=== PATIENT | female | born 1985 | race Caucasian/White ===

== ENCOUNTER 2024-07-19 15:57 | Emergency (ER) | payer SELFPAY | END 2024-07-19 16:08 | disposition left against medical advice (07) | LOC: ER 15:58 | DX: J00 Acute nasopharyngitis [common cold] (principal); Z59.00 Homelessness unspecified | CPT/HCPCS: 99281; 99283 ==

== ENCOUNTER 2024-07-21 11:23 | Inpatient (IN) | payer MEDICAID ==
[~2024-07-21] VITALS: Ht 162.6 cm; Wt 76.6 kg
[2024-07-21 12:48] LABS: URINE AMPHETAMINE SCREEN NEGATIVE (Neg); URINE BARBITUATE SCREEN NEGATIVE (Neg); URINE BENZODIAZEPINES SCREEN NEGATIVE (Neg); URINE CANNABINOID SCREEN NEGATIVE (Neg); URINE COCAINE SCREEN NEGATIVE (Neg); URINE METHADONE SCREEN NEGATIVE (Neg); URINE OPIATE SCREEN NEGATIVE (Neg); URINE PHENCYCLIDINE SCREEN NEGATIVE (Neg)
[2024-07-21 13:25] LABS: BILIRUBIN,URINE SMALL (Neg); CLARITY,URINE SLIGHTLY CLOUDY (Clear); COLOR,URINE YELLOW (Yellow); GLUCOSE, URINE NEGATIVE (Neg); KETONES,URINE 40 mg/dl (Neg); LEUKOCYTE ESTERASE ,URINE NEGATIVE (Neg); NITRITES, URINE NEGATIVE (Neg); OCCULT BLOOD,URINE NEGATIVE (Neg); PROTEIN,URINE TRACE mg/dl (Neg); UROBILINOGEN,URINE 0.2 E.U/dL (0.2-1.0)
[2024-07-21 13:27] LABS: UA COLLECTION TYPE NON-SPECIFIED
[2024-07-21 13:31] LABS: BACTERIA,URINE FEW /HPF (Neg); RBC,URINE 0-2 /HPF (0-2); SQUAMOUS EPITHELIAL CELL,UR FEW /LPF (FEW); WBC,URINE 0-4 /HPF (0-4)
[2024-07-21 13:32] LABS: AMORPHOUS PHOSPHATES 1+
[2024-07-21 14:20] LABS: BASOPHILS # (AUTO) 0.1 X10'3 (0-0.2); BASOPHILS % (AUTO) 0.3 % (0-1); EOSINOPHILS # (AUTO) 0.1 X10'3 (0-0.9); EOSINOPHILS % (AUTO) 0.3 % (0-6); HEMATOCRIT 39.2 % (35.0-45.0); HEMOGLOBIN 13.6 g/dl (12.0-16.0); LYMPHOCYTES # (AUTO) 2.3 X10'3 (1.1-4.8); MEAN CORPUSCULAR HEMOGLOBIN 30.8 PG (27.0-31.0); MEAN CORPUSCULAR HGB CONC 34.8 g/dL (33.0-36.5); MEAN CORPUSCULAR VOLUME 88.5 FL (78-98); MEAN PLATELET VOLUME 7.1 FL (7.4-10.4); MONOCYTES # (AUTO) 1.1 X10'3 (0-0.9); MONOCYTES % (AUTO) 6.7 % (2-12); NEUTROPHILS # (AUTO) 12.8 X10'3 (1.8-7.7); NEUTROPHILS % (AUTO) 78.7 % (42-75); PLATELET COUNT 515 X10'3 (140-440); RED BLOOD COUNT 4.43 X10'6 (4.20-5.60); RED CELL DISTRIBUTION WIDTH 13.6 % (11.5-14.5); WHITE BLOOD COUNT 16.3 X10'3 (4.5-11.0)
[2024-07-21 14:45] LABS: ALBUMIN 3.8 G/DL (3.4-5.0); ANION GAP 8 (8-16); BLOOD UREA NITROGEN 7 MG/DL (7-18); BUN/CREATININE RATIO 10.4 (10.0-20.0); CALCIUM 8.6 MG/DL (8.5-10.1); CHLORIDE 102 MMOL/L (99-107); CREATININE 0.67 MG/DL (0.40-0.90); ETHANOL < 10 MG/DL (<10); GLUCOSE 105 MG/DL (70-104); POTASSIUM 3.6 MMOL/L (3.5-5.1); SODIUM 140 MMOL/L (135-145); THYROID STIMULATING HORMONE 0.59 ulU/ml (0.34-4.50); TOTAL CARBON DIOXIDE 29.7 MMOL/L (24-32); eCRCL 96 ML/MIN; eGFR > 90 ML/MIN
[2024-07-21 16:01] LABS: URINE HCG NEGATIVE (NEG)
[2024-07-22] MEDS: ibuprofen tablet 400 MG TABLET PO ONE (13:36)
[2024-07-22] MEDS ORDERED: magnesium hydroxide 30ml (MOM) UD suspension PO PRN (14:00)
[2024-07-22] MEDS ORDERED: loperamide 2mg capsule PO PRN (14:00)
[2024-07-22] MEDS ORDERED: mag hydrox/Alum hydrox/simeth 30ml oral suspension PO PRN (14:00)
[2024-07-22 15:09] VITALS: RESP 12; O2SAT 100
[2024-07-22] MEDS ORDERED: hydrOXYzine 25 MG tablet PO PRN (15:40)
[2024-07-22] MEDS: OLANZapine 5mg rapidly disint. tablet PO ONE (16:17)
[2024-07-22 20:00] VITALS: BP 109/59; PULSE 80; RESP 16; TEMP 98; O2SAT 99
[2024-07-22] MEDS: traZODone 50mg tablet PO SCH (20:56)
[2024-07-22 21:15] VITALS: BP 109/59; PULSE 80; RESP 16; TEMP 98; O2SAT 99
[2024-07-23 05:30] LABS: CHOL/HDL RATIO 2.5 (0.00-4.99); CHOLESTEROL 134 MG/DL (0-200); HDL CHOLESTEROL 53 MG/DL (35-60); LDL CHOLESTEROL 71 MG/DL (50-100); TRIGLYCERIDES 66 MG/DL (20-135)
[2024-07-23 05:32] LABS: HEMOGLOBIN A1C 5.3 % (4.5-6.2)
[2024-07-23 07:00] VITALS: RESP 12; O2SAT 97
[2024-07-23 08:00] VITALS: BP 107/71; PULSE 91; RESP 12; TEMP 98.2; O2SAT 97
[2024-07-23] MEDS: NICOTINE POLACRILEX 2 MG LOZENGE BC PRN (13:36)
[2024-07-23] MEDS: acetaminophen 325mg tablet PO PRN (16:32)
[2024-07-23 19:00] VITALS: RESP 16; O2SAT 98
[2024-07-23 19:19] VITALS: BP 117/79; PULSE 79; RESP 22; TEMP 97.9; O2SAT 98
[2024-07-23] MEDS: dextroamphetamine/amphetamine 5mg tablet PO SCH (19:31)
[2024-07-23 20:00] VITALS: RESP 16
[2024-07-23] MEDS: traZODone 50mg tablet PO SCH (20:37)
[2024-07-23] MEDS: OLANZapine 5mg rapidly disint. tablet PO SCH (20:38)
[2024-07-24 07:00] VITALS: RESP 12; O2SAT 97
[2024-07-24 07:08] LABS: BASOPHILS # (AUTO) 0.1 X10'3 (0-0.2); BASOPHILS % (AUTO) 0.8 % (0-1); EOSINOPHILS # (AUTO) 0.3 X10'3 (0-0.9); EOSINOPHILS % (AUTO) 2.5 % (0-6); HEMATOCRIT 38.3 % (35.0-45.0); HEMOGLOBIN 12.9 g/dl (12.0-16.0); LYMPHOCYTES # (AUTO) 2.7 X10'3 (1.1-4.8); LYMPHOCYTES % (AUTO) 23.6 % (21-51); MEAN CORPUSCULAR HEMOGLOBIN 30.1 PG (27.0-31.0); MEAN CORPUSCULAR HGB CONC 33.7 g/dL (33.0-36.5); MEAN CORPUSCULAR VOLUME 89.2 FL (78-98); MEAN PLATELET VOLUME 7.2 FL (7.4-10.4); MONOCYTES # (AUTO) 1.2 X10'3 (0-0.9); MONOCYTES % (AUTO) 10.7 % (2-12); NEUTROPHILS # (AUTO) 7.2 X10'3 (1.8-7.7); NEUTROPHILS % (AUTO) 62.4 % (42-75); PLATELET COUNT 473 X10'3 (140-440); RED BLOOD COUNT 4.29 X10'6 (4.20-5.60); RED CELL DISTRIBUTION WIDTH 13.6 % (11.5-14.5); WHITE BLOOD COUNT 11.6 X10'3 (4.5-11.0)
[2024-07-24 07:33] LABS: ALANINE AMINOTRANSFERASE 18 U/L (12-78); ALBUMIN 3.6 G/DL (3.4-5.0); ALBUMIN/GLOBULIN RATIO 1.1 (1.1-1.5); ALKALINE PHOSPHATASE 67 IU/L (46-116); ANION GAP 6 (8-16); ASPARTATE AMINO TRANSFERASE 9 U/L (10-37); BILIRUBIN,TOTAL 0.3 MG/DL (0.1-1.0); BLOOD UREA NITROGEN 11 MG/DL (7-18); BUN/CREATININE RATIO 15.5 (10.0-20.0); CALCIUM 8.2 MG/DL (8.5-10.1); CHLORIDE 104 MMOL/L (99-107); CREATININE 0.71 MG/DL (0.40-0.90); GLUCOSE 96 MG/DL (70-104); POTASSIUM 3.7 MMOL/L (3.5-5.1); SODIUM 138 MMOL/L (135-145); TOTAL CARBON DIOXIDE 28.1 MMOL/L (24-32); TOTAL PROTEIN 6.8 G/DL (6.4-8.2); eCRCL 91 ML/MIN; eGFR > 90 ML/MIN
[2024-07-24 08:00] VITALS: BP 106/62; PULSE 82; RESP 16; TEMP 98.7; O2SAT 99
[2024-07-24] MEDS ORDERED: dextroamphetamine/amphetamine 5mg tablet PO SCH (14:25)
[2024-07-24] MEDS: dextroamphetamine/amphetamine 5mg tablet PO ONE (14:41)
[2024-07-24 19:00] VITALS: BP 109/71; PULSE 93; RESP 16; TEMP 98.7; O2SAT 99
[2024-07-24] MEDS: OLANZapine 5mg rapidly disint. tablet PO SCH (19:24)
[2024-07-24] MEDS ORDERED: hydrOXYzine 25 MG tablet PO PRN (19:25)
[2024-07-24] MEDS: hydrOXYzine 25 MG tablet PO SCH (21:00)
[2024-07-24 21:27] VITALS: BP 109/71; PULSE 93; RESP 16; TEMP 98.8; O2SAT 99
[2024-07-25 07:00] VITALS: RESP 16; O2SAT 96
[2024-07-25 08:00] VITALS: BP 114/67; PULSE 84; RESP 16; TEMP 98.7
[2024-07-25] MEDS: dextroamphetamine/amphetamine 5mg tablet PO SCH (08:00)
[2024-07-25] MEDS ORDERED: OLANZapine 5mg rapidly disint. tablet PO SCH (11:20)
[2024-07-25] MEDS: nicotine 14mg patch - 24hr TD SCH (12:02)
[2024-07-25] MEDS: OLANZapine 2.5MG tablet PO SCH (13:06)
[2024-07-25 19:00] VITALS: BP 101/55; PULSE 88; RESP 16; TEMP 98.3; O2SAT 97
[2024-07-26] MEDS: acetaminophen 325mg tablet PO PRN (05:35)
[2024-07-26 07:00] VITALS: BP 99/64; PULSE 71; RESP 16; TEMP 98.3; O2SAT 97
[2024-07-26 19:00] VITALS: BP 116/77; PULSE 92; RESP 20; TEMP 99.2; O2SAT 96
[2024-07-26 22:53] VITALS: BP 116/77; PULSE 92; RESP 20; TEMP 99.2; O2SAT 96
[2024-07-27 07:00] VITALS: RESP 12; O2SAT 98
[2024-07-27 08:00] VITALS: BP 118/80; PULSE 88; RESP 12; TEMP 98.6; O2SAT 98
[2024-07-27 21:26] VITALS: BP 118/74; PULSE 80; RESP 20; TEMP 97.1; O2SAT 98
[2024-07-27 22:23] VITALS: RESP 20; O2SAT 98
[2024-07-28 07:23] VITALS: BP 100/60; PULSE 72; RESP 14; TEMP 97.9; O2SAT 98
[2024-07-28 07:59] VITALS: RESP 14; O2SAT 98
[2024-07-28 19:00] VITALS: RESP 18; O2SAT 97
[2024-07-28 20:00] VITALS: BP 99/60; PULSE 87; RESP 18; TEMP 99.4; O2SAT 97
[2024-07-28] MEDS: traZODone 50mg tablet PO SCH (20:52)
[2024-07-28] MEDS ORDERED: traZODone 50mg tablet PO ONE ×2 (22:20→22:30)
[2024-07-28] MEDS: traZODone 50mg tablet PO ONE (22:33)
[2024-07-29 06:30] VITALS: RESP 16
[2024-07-29 07:30] VITALS: BP 145/86; PULSE 95; RESP 12; TEMP 98.3; O2SAT 100
[2024-07-29 19:00] VITALS: RESP 18; O2SAT 99
[2024-07-29] MEDS: ibuprofen 200mg tablet PO ONE (19:03)
[2024-07-29 20:00] VITALS: BP 134/83; PULSE 80; RESP 18; TEMP 98.8; O2SAT 99
[2024-07-29] MEDS: hydrOXYzine 25 MG tablet PO SCH (20:34)
[2024-07-30 07:30] VITALS: BP 96/66; PULSE 79; RESP 14; TEMP 98.8; O2SAT 97
[2024-07-30 08:00] VITALS: BP 96/66; PULSE 79; RESP 14; TEMP 98.8; O2SAT 97
[2024-07-30 19:00] VITALS: RESP 18; O2SAT 99
[2024-07-30 20:00] VITALS: BP 116/81; PULSE 92; RESP 18; TEMP 98.2; O2SAT 99
[2024-07-31 07:30] VITALS: BP 116/59; PULSE 79; RESP 20; TEMP 98.1; O2SAT 100
[2024-07-31 19:00] VITALS: BP 118/82; PULSE 78; RESP 14; TEMP 98.3; O2SAT 99
[2024-07-31] MEDS: traZODone 50mg tablet PO ONE (22:51)
[2024-08-01 07:30] VITALS: BP 102/67; PULSE 78; RESP 16; TEMP 99.3; O2SAT 96
[2024-08-01] MEDS: OLANZapine 5mg rapidly disint. tablet PO ONE (15:29)
[2024-08-01 19:00] VITALS: RESP 22; O2SAT 98
[2024-08-01 20:00] VITALS: BP 114/76; PULSE 90; RESP 22; TEMP 98; O2SAT 98
[2024-08-01] MEDS ORDERED: OLANZAPINE 5 MG TABLET PO SCH (20:00)
[2024-08-01] MEDS: OLANZAPINE 5 MG TABLET PO SCH (20:30)
[2024-08-01] MEDS: traZODone 150mg tablet PO SCH (20:33)
[2024-08-01 21:54] VITALS: RESP 22; O2SAT 98
[2024-08-02 08:00] VITALS: BP 104/73; PULSE 112; RESP 16; TEMP 98.8; O2SAT 97
[2024-08-02] MEDS ORDERED: OLAN5TAB75 PO (08:05)
[2024-08-02] MEDS ORDERED: HYDR-3686 PO (08:05)
[2024-08-02] MEDS ORDERED: TRAZ150T78 PO (08:05)
[2024-08-02] MEDS ORDERED: OLANZAPINE 5 MG TABLET PO SCH (21:00)
== END 2024-08-02 08:40 | disposition home or self-care (01) | DRG 750 ==
LOC: ER 11:23 → UNDOADMIN 07-22 12:24 → ED HOLD 07-22 12:24 → ADULT MH 07-22 13:43 → ED HOLD 07-22 13:43 → ADULT MH 07-22 16:40 → ED HOLD 07-22 16:40
PROVIDERS: ADMIT Psychiatry & Neurology Psychiatry; ATTEND Psychiatry & Neurology Psychiatry
PROC: GZHZZZZ Group Psychotherapy (ICD-10-PCS; principal; 2024-07-23)
PROC: GZ51ZZZ Individual Psychotherapy, Behavioral (ICD-10-PCS; 2024-07-23)
DX: F25.9 Schizoaffective disorder, unspecified (principal); F23 Brief psychotic disorder; D72.829 Elevated white blood cell count, unspecified; F31.9 Bipolar disorder, unspecified; Z20.822 Contact with and (suspected) exposure to COVID-19; F90.9 Attention-deficit hyperactivity disorder, unspecified type; F15.90 Other stimulant use, unspecified, uncomplicated; R10.9 Unspecified abdominal pain; Z59.00 Homelessness unspecified; Z87.891 Personal history of nicotine dependence; Z88.0 Allergy status to penicillin; Z88.8 Allergy status to other drugs, medicaments and biological substances; Z91.011 Allergy to milk products
CPT/HCPCS: 36415; 80048; 80053; 80061; 80305; 80320; 81001; 81025; 83036; 84443; 85025; 87081; 87811; 99285; A6250; Q0177